=== PATIENT | female | born 1995 | race Caucasian/White ===

== ENCOUNTER 2017-01-30 01:36 | Emergency (ER) | payer BC ==
[2017-01-30 02:24] LABS: Appearance,Urine Turbid (Clear); Bilirubin,Urine Negative (Negative); Glucose,Urine (UA) Negative (Negative); Ketones,Urine Negative (Negative); Leukocyte Esterase,Urine Large (Negative); Mucus,Urine Many /hpf; Nitrite,Urine Negative (Negative); PH, Urine 5.5 (5.0-8.0); Particle Count 39625; Protein,Urine 1+ (Negative); RBC,Urine 3 /hpf (0-5); Specific Gravity,Urine 1.023 (1.001-1.035); Squamous Epithelial Cell,Urine 101 /hpf (0-4); UA Billing (MACRO vs. MICRO) MICRO; Urobilinogen,Urine <2.0 mg/dL (<2.0); WBC,Urine 176 /hpf (0-5)
--- NOTE | 2017-01-30 03:20 | ED ---
Female Urogenital HPI - General Chief complaint: Vaginal Bleeding Stated complaint: -spotting Time Seen by Provider: 01/30/17 01:43 Source: patient, RN notes reviewed Mode of arrival: ambulatory Limitations: no limitations - History of Present Illness Initial comments: Patient is 21-year-old female chief complaint of possibly being . Patient reports that over the past increasing nausea in the morning as well as tenderness to bilateral breasts. Patient reports that she's not had a menstrual cycle since September. Patient states that she has a history of abnormal. Said this is a surprise to her. She states that she is unsure of her lung she could be. She denies any abdominal pain. She states that today she did notice spotting and is concerned. Patient states she has not taken a test. Patient states the severe first . Last Menstrual Period: 10/02/16 - Related Data Previous Rx's Medication Instructions Recorded Cefpodoxime Proxetil [Vantin] 100 mg PO Q12HR #14 tab 01/30/17 Krf-Jghb-Sgrkj Acid 1 cap PO DAILY #30 cap 01/30/17 [-U Capsule (formulary)] Allergies Allergy/AdvReac Type Severity Reaction Status Date / Time codeine Allergy Anaphylaxis Verified 01/30/17 01:44 Penicillins Allergy Rash/Hives Verified 01/30/17 01:44 Review of Systems ROS Statement: Those systems with pertinent positive or pertinent negative responses have been documented in the HPI. ROS Other: All systems not noted in ROS Statement are negative. Past Medical History Additional Past Medical History / Comment(s): endometreosis History of Any Multi-Drug Resistant Organisms: None Reported Past Surgical History: Hernia Repair Past Psychological History: Anxiety, Bipolar Smoking Status: Current every day smoker Past Alcohol Use History: None Reported Past Drug Use History: None Reported General Exam - General Exam Comments Initial Comments: Pleasant 21-year-old female. No distress. Limitations: no limitations General appearance: alert, in no apparent distress Head exam: Present: atraumatic, normocephalic, normal inspection Eye exam: Present: normal appearance, PERRL, EOMI. Absent: scleral icterus, conjunctival injection, periorbital swelling ENT exam: Present: normal exam, mucous membranes moist Neck exam: Present: normal inspection. Absent: tenderness, meningismus, lymphadenopathy Respiratory exam: Present: normal lung sounds bilaterally. Absent: respiratory distress, wheezes, rales, rhonchi, stridor Cardiovascular Exam: Present: regular rate, normal rhythm, normal heart sounds. Absent: systolic murmur, diastolic murmur, rubs, gallop, clicks GI/Abdominal exam: Present: soft, normal bowel sounds. Absent: distended, tenderness, guarding, rebound, rigid External exam: Present: normal external exam Speculum exam: Present: normal speculum exam, vaginal discharge (Skin vaginal discharge.) By manual exam: Present: normal by manual exam Extremities exam: Present: normal inspection, full ROM, normal capillary refill. Absent: tenderness, pedal edema, joint swelling, calf tenderness Back exam: Present: normal inspection Neurological exam: Present: alert, oriented X3, CN II-XII intact Course Vital Signs 01/30/17 01/30/17 01:39 03:33 Temperature 97.4 F L 97 F L Pulse Rate 74 84 Respiratory 20 18 Rate Blood Pressure 120/78 122/64 O2 Sat by Pulse 99 97 Oximetry Medical Decision Making - Medical Decision Making Patient is 21-year-old female the possibility of being . Last menstrual cycle was in September. Patient does test positive on the urine test. Also signs of infection. Patient be treated with Ceftin piroxicam. She is ALLERGIC to penicillins. Patient is also O+. No signs of miscarriage with any vaginal bleeding. There is scant amount of vaginal discharge. Swabs are obtained for chlamydia and gonorrhea. Patient is excited about the . She states that she plans to get an EVENT AV OPERATOR. At this time currently pending hCG Quant results. Patient will be discharged with vitamin, antibiotic, and prescription for transvaginal ultrasound. Patient agrees with the treatment plan will comply. I discussed close follow-up with primary care provider. Return parameters were discussed. - Lab Data Lab Results 01/30/17 01/30/17 01/30/17 Range/Units 01:50 01:50 02:35 Urine Color Yellow Urine Appearance Turbid H (Clear) Urine pH 5.5 (5.0-8.0) Ur Specific [place] 1.023 (1.001-1.035) Urine Protein 1+ H (Negative) Urine Glucose (UA) Negative (Negative) Urine Ketones Negative (Negative) Urine Blood Moderate H (Negative) Urine Nitrite Negative (Negative) Urine Bilirubin Negative (Negative) Urine Urobilinogen <2.0 (<2.0) mg/dL Ur Leukocyte Esterase Large H (Negative) Urine RBC 3 (0-5) /hpf Urine WBC 176 H (0-5) /hpf Ur Squamous Epith Cells 101 H (0-4) /hpf Urine Mucus Many H (None) /hpf Urine HCG, Qual Detected (Not Detectd) Trichomonas Ag (Rapid) Negative (Negative) Blood Type Blood Type Recheck 01/30/17 Range/Units 03:30 Urine Color Urine Appearance (Clear) Urine pH (5.0-8.0) Ur Specific [place] (1.001-1.035) Urine Protein (Negative) Urine Glucose (UA) (Negative) Urine Ketones (Negative) Urine Blood (Negative) Urine Nitrite (Negative) Urine Bilirubin (Negative) Urine Urobilinogen (<2.0) mg/dL Ur Leukocyte Esterase (Negative) Urine RBC (0-5) /hpf Urine WBC (0-5) /hpf Ur Squamous Epith Cells (0-4) /hpf Urine Mucus (None) /hpf Urine HCG, Qual (Not Detectd) Trichomonas Ag (Rapid) (Negative) Blood Type O Positive Blood Type Recheck No Disposition Clinical Impression: , Urinary tract infection Disposition: HOME SELF-CARE Condition: Good Instructions: (ED), Urinary Tract Infection in (ED) Additional Instructions: Patient denies to complete antibiotics. Follow-up with a EVENT AV OPERATOR. Completely ultrasound. Return to emergency department if any alarming signs or symptoms occur. Prescriptions: Cefpodoxime Proxetil [Vantin] 100 mg PO Q12HR #14 tab Ccj-Hjll-Rorwa Acid [-U Capsule (formulary)] 1 cap PO DAILY # 30 cap Referrals: Josie Domínguez MD [Primary Care Provider] - 1-2 days Jovana Bateman MD [STAFF PHYSICIAN] - 1-2 days Time of Disposition: 03:11
[2017-01-30 03:34] VITALS: BP 122/64; PULSE 84; RESP 18; TEMP 97
== END 2017-01-30 03:33 | disposition home or self-care (01) ==
LOC: EC 01:36
DX: O23.40 Unspecified infection of urinary tract in pregnancy, unspecified trimester (principal); O99.89 Other specified diseases and conditions complicating pregnancy, childbirth and the puerperium; O99.330 Smoking (tobacco) complicating pregnancy, unspecified trimester; N89.8 Other specified noninflammatory disorders of vagina; R11.0 Nausea; F17.200 Nicotine dependence, unspecified, uncomplicated; Z3A.00 Weeks of gestation of pregnancy not specified; Z88.0 Allergy status to penicillin; Z88.5 Allergy status to narcotic agent
CPT/HCPCS: 36415; 81001; 81025; 84702; 86900; 86901; 87070; 87086; 87205; 87491; 87591; 87808; 99284

== ENCOUNTER 2017-06-14 09:49 | Outpatient (CLI) | payer BC ==
[2017-06-14] MEDS: LACTATED RINGERS 1,000 ML IV SCH ×2 (10:50→11:26)
[2017-06-14 10:58] LABS: Appearance,Urine Cloudy (Clear); Bacteria,Urine Rare /hpf; Bilirubin,Urine Negative (Negative); Glucose,Urine (UA) Negative (Negative); Ketones,Urine Negative (Negative); Leukocyte Esterase,Urine Large (Negative); Mucus,Urine Occasional /hpf; Nitrite,Urine Negative (Negative); PH, Urine 6.5 (5.0-8.0); Particle Count 13381; Protein,Urine Negative (Negative); RBC,Urine 4 /hpf (0-5); Specific Gravity,Urine 1.012 (1.001-1.035); Squamous Epithelial Cell,Urine 27 /hpf (0-4); UA Billing (MACRO vs. MICRO) MICRO; Urobilinogen,Urine <2.0 mg/dL (<2.0); WBC,Urine 13 /hpf (0-5)
[2017-06-14] MEDS ORDERED: ONDANSETRON 4 MG/2 ML VIAL IVP PRN (11:26)
[2017-06-14 15:37] VITALS: BP 118/71; PULSE 82; RESP 20; TEMP 97.1
--- NOTE | 2017-08-30 11:53 | P.MSEPDOC ---
Presenting Problems - Arrival Data Date of Arrival on Unit: 06/14/17 Time of Arrival on Unit: 09:39 Mode of Transport: Ambulatory - Complaint OB-Reason for Admission/Chief Complaint: Acute Nausea/Vomiting Comment: n/v x 7 since midnight. Medical History - Information : 1 Para: 0 Term: 0 : 0 Abortions: Spontaneous or Elective: 0 Number of Living Children: 0 - Gestational Age Gestational Age by KASANDRA (wks/days): 26 Weeks and 3 Days Review of Systems - Review of Systems Constitutional: No problems Breast: No problems ENT: No problems Cardiovascular: No problems Respiratory: No problems Genitourinary: No problems Musculoskeletal: No problems Neurological: No problems Skin: No problems Comment: n/v since mn Vital Signs - Temperature Temperature: 97.1 F Temperature Source: Oral - Pulse Right Brachial Pulse Rate: 82 Pulse Assessment Method: Automatic Cuff - Respirations Respiratory Rate: 20 Oxygen Delivery Method: Room Air O2 Sat by Pulse Oximetry: 98 - Blood Pressure Right Arm Blood Pressure: 118/71 Blood Pressure Mean: 86 Blood Pressure Source: Automatic Cuff Medical Screen Scoring (Pre) - Cervical Exam Dilation: Exam Deferred Effacement: Exam Deferred Membranes: Intact - Uterine Contractions Frequency: N/A Duration: N/A Intensity: N/A - Maternal Vital Signs Maternal Temperature: N/A Maternal Blood Pressure: N/A Signs of Preeclampsia: N/A Maternal Respirations: N/A - Assessment Baseline FHR: 130 Heart Rate - NICHD Category: Category I (Normal) = 0 Position: N/A Station: N/A - Total Score Total Score (Pre): 0 - Level of Risk Level of Risk: Low (0-5) Physician Notification (Pre) - Physician Notified Spoke With: samra New Order Received: Yes - Notification Comment Comment: ok to discharge patient if no nausea or vomitting and pt is stable for discharge. Medical Screen Scoring (Post) - Cervical Exam Dilation: Exam Deferred Effacement: Exam Deferred - Uterine Contractions Frequency: N/A Duration: N/A Intensity: N/A - Maternal Vital Signs Maternal Temperature: N/A Maternal Blood Pressure: N/A Signs of Preeclampsia: N/A Maternal Respirations: N/A - Maternal Trauma Maternal Trauma: N/A - Assessment Heart Rate: 130 Heart Rate - NICHD Category: Category I (Normal) = 0 NST: Reactive Position: N/A Station: N/A - Total Score Total Score (Post): 0 - Post Treatment Level of Risk Post Treatment Level of Risk: Low (0-5) Physician Notification (Post) - Physician Notified Physician Notified Date: 06/14/17 Physician Notified Time: 10:40 Physician/Practitioner Notified:: samra Spoke With: samra New Order Received: No - Notification Comment Comment: disch home. Disposition - Disposition OB Disposition: Discharge to home Discharge Date: 06/14/17 Discharge Time: 13:40 I agree with the RN Medical Screening Exam: Yes Risk & Benefit of care provided described in d/c instruction: Yes Diagnosis: VOMITING OF , UNSPECIFIED
== END 2017-06-14 13:40 | disposition home or self-care (01) ==
LOC: FBPOP 09:49
PROVIDERS: ATTEND Obstetrics & Gynecology Obstetrics
DX: O21.9 Vomiting of pregnancy, unspecified (principal); Z3A.26 26 weeks gestation of pregnancy
CPT/HCPCS: 99214; 96360; 96361; 96375; 81001; J2405

== ENCOUNTER 2017-09-01 16:21 | Outpatient (CLI) | payer BC ==
[2017-09-01] MEDS ORDERED: LACTATED RINGERS 1,000 ML IV SCH (17:30)
[2017-09-01 19:20] VITALS: BP 129/74; PULSE 88; RESP 16; TEMP 98.6
--- NOTE | 2017-09-22 12:57 | P.MSEPDOC ---
Presenting Problems - Arrival Data Date of Arrival on Unit: 09/01/17 Time of Arrival on Unit: 16:21 Mode of Transport: Ambulatory - Complaint OB-Reason for Admission/Chief Complaint: Possible Onset of Labor Medical History - Information : 1 Para: 0 Term: 0 : 0 Abortions: Spontaneous or Elective: 0 Number of Living Children: 0 - Gestational Age Gestational Age by KASANDRA (wks/days): 37 Weeks and 5 Days Review of Systems - Review of Systems Constitutional: No problems Breast: No problems ENT: No problems Cardiovascular: No problems Respiratory: No problems Gastrointestinal: No problems Genitourinary: No problems Musculoskeletal: No problems Neurological: No problems Skin: No problems Vital Signs - Temperature Temperature: 98.6 F Temperature Source: Temporal Artery Scan - Pulse Right Sitting Pulse Rate: 88 Pulse Assessment Method: Automatic Cuff - Respirations Respiratory Rate: 16 Oxygen Delivery Method: Room Air - Blood Pressure Right Arm Blood Pressure: 129/74 Blood Pressure Mean: 92 Blood Pressure Source: Automatic Cuff Medical Screen Scoring (Pre) - Cervical Exam Dilation: 1-3 cm = 1 Effacement: More than 50% = 2 Membranes: Intact - Uterine Contractions Frequency: > or = 36 weeks =2 Duration: N/A - Maternal Vital Signs Maternal Temperature: N/A Maternal Blood Pressure: N/A Signs of Preeclampsia: N/A Maternal Respirations: N/A - Maternal Trauma Maternal Trauma: N/A - Assessment Baseline FHR: 150 Heart Rate - NICHD Category: Category I (Normal) = 0 NST: Reactive Position: N/A Station: N/A - Total Score Total Score (Pre): 5 - Level of Risk Level of Risk: Medium (6-9) Physician Notification (Pre) - Physician Notified Physician Notified Date: 09/01/17 Physician Notified Time: 16:41 Physician/Practitioner Notifed:: Hurtubise New Order Received: Yes (recheck cervix in 1 hour, IV hydration) Medical Screen Scoring (Post) - Cervical Exam Dilation: 1-3 cm = 1 Effacement: More than 50% = 2 Membranes: Intact - Uterine Contractions Frequency: > or = 36 weeks =2 Duration: > 40 seconds = 2 - Maternal Vital Signs Maternal Temperature: N/A Maternal Blood Pressure: N/A Signs of Preeclampsia: N/A Maternal Respirations: N/A - Maternal Trauma Maternal Trauma: N/A - Assessment Heart Rate: 145 Heart Rate - NICHD Category: Category I (Normal) = 0 NST: Reactive Position: N/A Station: N/A - Total Score Total Score (Post): 7 - Post Treatment Level of Risk Post Treatment Level of Risk: Medium (6-9) Physician Notification (Post) - Physician Notified Physician Notified Date: 09/01/17 Physician Notified Time: 18:58 Physician/Practitioner Notified:: Fransico New Order Received: Yes (D/c home) - Notification Comment Comment: Pt has F/U appt with Dr. Mcmahon 09/04 Disposition - Disposition OB Disposition: Discharge to home Discharge Date: 09/01/17 Discharge Time: 19:01 I agree with the RN Medical Screening Exam: Yes Risk & Benefit of care provided described in d/c instruction: No Diagnosis: FALSE LABOR BEFORE 37 COMPLETED WEEKS OF GEST, THIRD TRI
== END 2017-09-01 19:01 | disposition home or self-care (01) ==
LOC: FBPOP 16:21
PROVIDERS: ATTEND Obstetrics & Gynecology
DX: O47.03 False labor before 37 completed weeks of gestation, third trimester (principal); Z3A.37 37 weeks gestation of pregnancy
CPT/HCPCS: 59025; 96360; 96361; 99214

== ENCOUNTER 2017-09-09 08:21 | Inpatient (IN) | payer BC, OTHER ==
[2017-09-09] MEDS ORDERED: ONDANSETRON 4 MG/2 ML VIAL ONE (08:46)
[2017-09-09] MEDS ORDERED: PHENYLEPHRINE-0.9% NACL SYG 1 MG/10 ML SYRINGE ONE (08:46)
[2017-09-09] MEDS ORDERED: OXYTOCIN 10 UNIT/ML 1 ML VIAL ONE (08:46)
[2017-09-09] MEDS ORDERED: PROPOFOL 10 MG/ML 20 ML VIAL IV ONE (08:46)
[2017-09-09] MEDS ORDERED: SUCCINYLCHOLINE CHLORIDE 100 MG/5 ML SYR IV ONE (08:46)
[2017-09-09] MEDS ORDERED: METHYLERGONOVINE 0.2 MG/ML 1 ML AMP ONE (08:46)
[2017-09-09] MEDS ORDERED: fentaNYL (PF) 50 MCG/ML 2 ML AMP ONE (08:46)
[2017-09-09] MEDS ORDERED: HYDROmorphone (PF) 1 MG/ML ONE (08:46)
[2017-09-09] MEDS ORDERED: diphenhydrAMINE 50 MG/ML 1 ML VIAL IVP PRN ×2 (09:20)
[2017-09-09] MEDS ORDERED: ZOLPIDEM 5 MG TAB PO PRN (09:20)
[2017-09-09] MEDS ORDERED: CITRIC ACID-SODIUM CITRATE 15 ML CUP PO ONE (09:20)
[2017-09-09] MEDS ORDERED: NALOXONE 0.4 MG/ML 1 ML VIAL IV PRN (09:20)
[2017-09-09] MEDS ORDERED: ACETAMINOPHEN TAB 325 MG TAB PO PRN (09:20)
[2017-09-09] MEDS ORDERED: METOCLOPRAMIDE 5 MG/ML 2 ML VIAL IVP PRN (09:20)
[2017-09-09] MEDS ORDERED: ONDANSETRON 4 MG/2 ML VIAL IVP PRN (09:20)
[2017-09-09] MEDS ORDERED: diphenhydrAMINE 25 MG CAP PO PRN (09:20)
[2017-09-09] MEDS ORDERED: HYDROmorphone PCA 5 MG/25 ML SYRINGE IV PRN (09:20)
[2017-09-09] MEDS ORDERED: diphenhydrAMINE 50 MG CAP PO PRN (09:20)
[2017-09-09] MEDS ORDERED: LACTATED RINGERS 1,000 ML IV SCH (09:30)
[2017-09-09 09:49] LABS: Basophils % (A) 0 %; CH 29.2; CHCM 31.8; Eosinophils % (A) 0 %; HCT 33.6 % (34.0-46.0); HDW 2.83; HGB 10.7 gm/dL (11.4-16.0); Hypochromasia Slight; Luc # (Auto) 0.18; Luc % (Auto) 1; Lymphocytes # (A) 1.4 k/uL (1.0-4.8); Lymphocytes % (A) 8 %; MCH 29.3 pg (25.0-35.0); MCHC 31.7 g/dL (31.0-37.0); MCV 92.4 fL (80.0-100.0); Monocytes % (A) 5 %; Neutrophils # (A) 14.9 k/uL (1.3-7.7); Neutrophils % (A) 85 %; RBC 3.64 m/uL (3.80-5.40); RDW 14.1 % (11.5-15.5); WBC 17.6 k/uL (4.0-11.0); WBC (Perox) 18.71
[2017-09-09] MEDS: LACTATED RINGERS 1,000 ML IV SCH ×2 (10:04→19:16)
[2017-09-09] MEDS ORDERED: OXYTOCIN 20 UNITS/1000 ML NS 1,000 ML IV SCH (10:15)
[2017-09-09 13:07] VITALS: BMI 24.4
[2017-09-09] MEDS: ACETAMINOPHEN IV (For NPO) 1,000 MG in EMPTY BAG 1 BAG IVPB SCH ×2 (13:18→21:20)
--- NOTE | 2017-09-09 15:20 | P.HPOB ---
History of Present Illness H&P Date: 09/09/17 Chief Complaint: Contractions, IUP at 38-6/7 weeks Since a very pleasant 21-year-old 1 para 0 at 38-6/7 weeks that presented to labor and delivery with complaints of contractions. On initial exam patient was 3 cm dilated but noted tachycardia with decelerations down to the 60s. Patient stated she was uncomfortable with contractions. She denied any loss of fluid at this time. She denied any vaginal bleeding. She states she started rody in the middle of the evening but they really got strongly around 1:00 this morning. She did movement throughout all of the evening. The decision was made to take the patient back for a primary low transverse section secondary to nonreassuring heart tones informed consent was obtained at the bedside from the patient. Risks were reviewed including but not limited to infection, bleeding, damage to bladder, bowel, ureteric injury. She states understanding and will sign consent. On blood work she had a blood type of O+, rubella immune, RPR nonreactive, hepatitis B surface antigen negative, HIV negative group B beta strep positive. Past Medical History Additional Past Medical History / Comment(s): endometreosis History of Any Multi-Drug Resistant Organisms: None Reported Past Surgical History: Hernia Repair Past Anesthesia/Blood Transfusion Reactions: No Reported Reaction Past Psychological History: Anxiety, Bipolar Smoking Status: Never smoker Past Alcohol Use History: None Reported Past Drug Use History: Marijuana Additional Drug Use History / Comment(s): pt states discontinued use but family she lives with still smokes - Past Family History Mother Family Medical History: Blood Disorder Medications and Allergies Home Medications Medication Instructions Recorded Confirmed Type Dpm-Zodo-Mvjcy Acid 1 cap PO DAILY #30 cap 01/30/17 09/09/17 Rx [-U Capsule (formulary)] Allergies Allergy/AdvReac Type Severity Reaction Status Date / Time codeine Allergy Anaphylaxis Verified 09/09/17 09:20 Penicillins Allergy Rash/Hives Verified 09/09/17 09:20 Exam Osteopathic Statement: *. No significant issues noted on an osteopathic structural exam other than those noted in the History and Physical/Consult. - Vital Signs Vital signs: Vital Signs Temp Pulse Resp BP Pulse Ox 09/09/17 12:48 98.9 F 107 H 18 142/81 99 09/09/17 11:31 95 16 139/82 100 11/07/17 11:01 92 16 135/82 100 09/09/17 10:31 85 16 131/80 100 09/09/17 10:16 77 16 140/82 100 09/09/17 10:01 85 16 145/78 100 09/09/17 09:46 86 16 139/84 100 09/09/17 09:31 98.9 F 108 H 16 146/81 100 09/09/17 09:10 97.9 F 102 H 18 138/88 100 Intake and Output 09/09/17 09/09/17 09/09/17 06:59 14:59 22:59 Output Total 800 Balance -800 Output: Estimated Blood Loss 800 Other: Weight 62.596 kg Patient Weight 09/10/17 06:59 Weight 62.596 kg Results Result Diagrams: 09/09/17 08:40 Abnormal Lab Results - Last 24 Hours (Table) 09/09/17 Range/Units 08:40 WBC 17.6 H (4.0-11.0) k/uL RBC 3.64 L (3.80-5.40) m/uL Hgb 10.7 L (11.4-16.0) gm/dL Hct 33.6 L (34.0-46.0) % Neutrophils # 14.9 H (1.3-7.7) k/uL Assessment and Plan (1) Term Current Visit: Yes Status: Acute Code(s): Z34.80 - ENCOUNTER FOR SUPRVSN OF NORMAL , UNSP TRIMESTER SNOMED Code(s): 47609678 (2) Non-reassuring electronic monitoring tracing Narrative/Plan: Plan was for primary low transverse section with general anesthesia secondary to nonreassuring heart tracing. Current Visit: Yes Status: Acute Code(s): O76 - ABNLT IN HEART RATE AND RHYTHM COMP LABOR AND DELIVERY SNOMED Code(s): 466151156
--- NOTE | 2017-09-09 15:24 | P.OP ---
Date of Procedure: 09/09/17 Preoperative Diagnosis: Nonreassuring heart tones, IUP at 38 6/7 weeks Postoperative Diagnosis: Same Procedure(s) Performed: Primary low transverse section Anesthesia: HARSHIL Surgeon: Kalpana Mcmahon Green Coffee Blender #1: Monica Pinto Estimated Blood Loss (ml): 800 IV fluids (ml): 1,000 Urine output (ml): 100 Pathology: other (Placenta) Condition: stable Disposition: observation Indications for Procedure: Nonreassuring heart tones Operative Findings: Thick meconium-stained amniotic fluid. Female delivered in vertex presentation at 851 Apgars of 389 at 15 and 10 minutes respectively. weight of 7 lbs. 10 oz. Description of Procedure: The patient was prepped and draped in the usual fashion after spinal anesthesia was administered by Dr. Johns. A Pfannenstiel incision was made and extended of the abdominal cavity without difficulty. The bladder peritoneum was elevated and incised and reflected distally. A 2 cm incision was made in the transverse plane of the lower uterine segment to enter the uterus at which time clear fluid was noted. The incision was extended in both directions using the bandage scissors. The head was encountered within the field and delivered up and through the incision where the nose and mouth were thoroughly suctioned. Remainder of the infant was delivered onto the surgical field where the cord was doubly clamped, cut, and the was passed for resuscitative measures with weight and Apgars 3, 8,9 1,5 10 mins. A segment of cord was then doubly clamped, cut, and set aside should cord gases become necessary. The placenta was delivered manually, intact, and was grossly normal with a grossly normal three-vessel cord. The uterus was exteriorized and the interior cavity of the uterus swept of any remaining placental and membranous fragments with a laparotomy sponge. The margins of the incision were grasped with allis clamps and the incision closed in 2 layers. First layer was a running locking layer of 0 vicryl from margin to margin followed by a second layer of imbricating 0 vicryl from margin to margin. Any small points of bleeding were then made hemostatic with the Bovie. Once hemostasis was achieved, the posterior cul-de- sac was suctioned with a guard and the uterine and ovarian findings are as noted above. The uterus was replaced within the abdominal cavity and the gutters swept of any remaining blood fluid or clot. The incision was again reexamined and hemostasis was noted to be excellent. Any small point of bleeding were made hemostatic with the Bovie. Once hemostasis was achieved the parietal peritoneum was loosely reapproximated. The layer of muscles were examined and made hemostatic with the Bovie. Attention was then turned to the fascia which was closed with 2 running stitches of 0 Vicryl proceeding from the lateral margins to the midpoint. The subcutaneous tissues were irrigated, made hemostatic with the Bovie, and reapproximated with a running stitch of 30 plain catgut. The skin was reapproximated with regular surgical joseph. Estimated blood loss for the case was approximately 600 mL. All sponge instrument and needle counts are correct. There were no complications. The patient tolerated the procedure well and proceeded to the recovery room in stable condition. Both mother and infant are resting comfortably in recovery.
[2017-09-09] MEDS: SENNOSIDES-DOCUSATE SODIUM 1 EACH TAB PO SCH (22:13)
[2017-09-10] MEDS: ACETAMINOPHEN IV (For NPO) 1,000 MG in EMPTY BAG 1 BAG IVPB SCH ×2 (03:45→09:52)
[2017-09-10] MEDS: LACTATED RINGERS 1,000 ML IV SCH (07:41)
[2017-09-10] MEDS: IBUPROFEN 600 MG TAB PO PRN ×2 (07:42→16:20)
[2017-09-10] MEDS: SENNOSIDES-DOCUSATE SODIUM 1 EACH TAB PO SCH ×2 (07:42→20:57)
[2017-09-10] MEDS ORDERED: traMADol-ACETAMINOP 37.5-325MG 1 EACH TAB PO PRN (08:40)
--- NOTE | 2017-09-10 08:40 | P.PNOBGPC ---
Subjective - Subjective Principal diagnosis: Postop day 1, primary Interval history: Twila has done well status post primary for nonreassuring heart tones. She is ambulating. She has voided on her own status post Muir catheter discontinuation. She states her pain is controlled. We are struggling a little bit to find what we can use for her given her severe codeine ALLERGY. We will try Ultram this morning. In addition we will give her IV Ofirmev if needed. Patient reports: Reports appetite normal, Reports voiding normally, Reports pain well controlled, Reports ambulating normally [place]: doing well (In the nursery.) Objective - Vital Signs Latest vital signs: Vital Signs Temp Pulse Resp BP Pulse Ox 09/10/17 04:00 98.8 F 86 16 108/59 98 09/10/17 00:00 98.4 F 75 18 120/68 100 09/09/17 20:00 98.1 F 80 18 116/70 100 09/09/17 16:00 98 F 92 16 122/67 97 09/09/17 13:48 94 16 121/68 97 09/09/17 13:33 113 H 16 133/75 96 09/09/17 13:18 114 H 16 136/83 97 09/09/17 13:03 114 H 16 151/92 100 09/09/17 12:48 98.9 F 107 H 18 142/81 99 09/09/17 11:31 95 16 139/82 100 09/09/17 11:01 92 16 135/82 100 09/09/17 10:31 85 16 131/80 100 09/09/17 10:16 77 16 140/82 100 09/09/17 10:01 85 16 145/78 100 09/09/17 09:46 86 16 139/84 100 09/09/17 09:31 98.9 F 108 H 16 146/81 100 09/09/17 09:10 97.9 F 102 H 18 138/88 100 Intake and Output 09/09/17 09/10/17 09/10/17 22:59 06:59 14:59 Intake Total 125 Output Total 2400 Balance -2275 Intake: IV 125 Invasive Line 1 125 Output: Urine 2400 Other: # Voids 1 - Labs Labs: Abnormal Lab Results - Last 24 Hours (Table) 11/07/17 Range/Units 08:40 WBC 17.6 H (4.0-11.0) k/uL RBC 3.64 L (3.80-5.40) m/uL Hgb 10.7 L (11.4-16.0) gm/dL Hct 33.6 L (34.0-46.0) % Neutrophils # 14.9 H (1.3-7.7) k/uL Assessment and Plan (1) Term Current Visit: Yes Status: Acute Code(s): Z34.80 - ENCOUNTER FOR SUPRVSN OF NORMAL , UNSP TRIMESTER SNOMED Code(s): 05040662 (2) Non-reassuring electronic monitoring tracing Current Visit: Yes Status: Acute Code(s): O76 - ABNLT IN HEART RATE AND RHYTHM COMP LABOR AND DELIVERY SNOMED Code(s): 804697045
[2017-09-10 09:24] LABS: Basophils % (A) 0 %; CH 29.8; CHCM 31.5; Eosinophils % (A) 0 %; HCT 28.8 % (34.0-46.0); HDW 2.87; Hypochromasia Slight; Luc # (Auto) 0.16; Luc % (Auto) 1; Lymphocytes # (A) 0.7 k/uL (1.0-4.8); Lymphocytes % (A) 3 %; MCH 28.7 pg (25.0-35.0); MCHC 30.1 g/dL (31.0-37.0); MCV 95.4 fL (80.0-100.0); Mean Platelet Volume 7.2; Monocytes # (A) 0.7 k/uL (0-1.0); Monocytes % (A) 3 %; Neutrophils # (A) 25.4 k/uL (1.3-7.7); Neutrophils % (A) 94 %; RBC 3.02 m/uL (3.80-5.40); RDW 13.3 % (11.5-15.5); WBC (Perox) 27.66
[2017-09-10 09:44] LABS: HGB 8.7 gm/dL (11.4-16.0)
[2017-09-10] MEDS: traMADol-ACETAMINOP 37.5-325MG 1 EACH TAB PO PRN ×2 (11:56→20:56)
[2017-09-10] MEDS: PRENATAL VIT-IRON-FOLIC ACID 1 EACH CAP PO SCH (13:07)
[2017-09-11 07:27] LABS: Basophils % (A) 0 %; CH 28.6; Eosinophils % (A) 0 %; HCT 27.2 % (34.0-46.0); HDW 2.77; HGB 8.5 gm/dL (11.4-16.0); Hypochromasia Moderate; Luc # (Auto) 0.16; Luc % (Auto) 1; Lymphocytes # (A) 0.9 k/uL (1.0-4.8); Lymphocytes % (A) 4 %; MCHC 31.2 g/dL (31.0-37.0); Mean Platelet Volume 7.9; Monocytes # (A) 0.4 k/uL (0-1.0); Monocytes % (A) 2 %; Neutrophils # (A) 23.2 k/uL (1.3-7.7); Neutrophils % (A) 94 %; RBC 2.92 m/uL (3.80-5.40); RDW 14.1 % (11.5-15.5); WBC 24.7 k/uL (4.0-11.0); WBC (Perox) 26.33
[2017-09-11] MEDS ORDERED: MAGNESIUM HYDROXIDE 2,400 MG/10 ML CUP PO PRN (08:13)
--- NOTE | 2017-09-11 08:13 | P.PNOBGPC ---
Subjective - Subjective Principal diagnosis: Postop day 2, primary Interval history: Patient is doing well this morning. She slept well overnight. Baby remains in the nursery with oxygen. She is using Ultram for pain control due to her many ALLERGIES. She states it is working but she has painful this morning. She is ambulating and voiding without difficulty. She has not passed flatus. She is tolerating a regular diet without nausea or vomiting. Patient reports: Reports appetite normal, Reports voiding normally (Pain controlled yet if she forgets her medication her pain scale increases), Reports ambulating normally (In the nursery with oxygen needs) Objective - Vital Signs Latest vital signs: Vital Signs Temp Pulse Resp BP Pulse Ox 09/10/17 23:26 98.4 F 90 16 97/41 09/10/17 16:00 98.6 F 89 16 109/59 98 - Exam Extremities: Present: normal Abdomen: Present: soft, distention Incision: Present: normal, dry, intact Uterus: Present: firm - Labs Labs: Abnormal Lab Results - Last 24 Hours (Table) 09/10/17 09/11/17 Range/Units 08:50 07:06 WBC 27.0 H* 24.7 H (4.0-11.0) k/uL RBC 3.02 L 2.92 L (3.80-5.40) m/uL Hgb 8.7 L D 8.5 L (11.4-16.0) gm/dL Hct 28.8 L 27.2 L (34.0-46.0) % MCHC 30.1 L (31.0-37.0) g/dL Neutrophils # 25.4 H 23.2 H (1.3-7.7) k/uL Lymphocytes # 0.7 L 0.9 L (1.0-4.8) k/uL Assessment and Plan (1) Term Narrative/Plan: Continue postoperative care. She will need simethicone or milk of magnesia given without gassy distention of her abdomen. She states she has not passed flatus yet. Her pain is mostly controlled with oral Ultram. We did discuss pain control this morning and given her multiple ALLERGIES this is the only option for her. I encouraged her to continue to walk the halls, warm showers for flatus. Current Visit: Yes Status: Acute Code(s): Z34.80 - ENCOUNTER FOR SUPRVSN OF NORMAL , UNSP TRIMESTER SNOMED Code(s): 67829560 (2) Non-reassuring electronic monitoring tracing Current Visit: Yes Status: Acute Code(s): O76 - ABNLT IN HEART RATE AND RHYTHM COMP LABOR AND DELIVERY SNOMED Code(s): 291492014
[2017-09-11] MEDS: SIMETHICONE 80 MG CHEWABLE PO SCH ×3 (09:03→23:51)
[2017-09-11] MEDS: PRENATAL VIT-IRON-FOLIC ACID 1 EACH CAP PO SCH (09:03)
[2017-09-11] MEDS: SENNOSIDES-DOCUSATE SODIUM 1 EACH TAB PO SCH ×2 (09:07→19:36)
[2017-09-11] MEDS: IBUPROFEN 600 MG TAB PO PRN ×2 (10:44→19:35)
[2017-09-11] MEDS: traMADol-ACETAMINOP 37.5-325MG 1 EACH TAB PO PRN (16:35)
[2017-09-11] MEDS ORDERED: BISACODYL 10 MG SUPP RECTAL PRN (20:24)
[2017-09-11] MEDS ORDERED: ONDANSETRON 4 MG/2 ML VIAL IVP PRN (22:58)
[2017-09-11] MEDS: ACETAMINOPHEN IV (For NPO) 1,000 MG in EMPTY BAG 1 BAG IVPB PRN (23:30)
[2017-09-11] MEDS: LACTATED RINGERS 1,000 ML IV SCH (23:30)
[2017-09-12] MEDS ORDERED: ACETAMINOPHEN IV (For NPO) 1,000 MG in EMPTY BAG 1 BAG IVPB SCH
[2017-09-12 00:24] VITALS: RESP 16
[2017-09-12] MEDS: KETOROLAC 30 MG/ML 1 ML VIAL IVP PRN (03:36)
[2017-09-12] MEDS: LACTATED RINGERS 1,000 ML IV SCH ×3 (06:20→22:26)
[2017-09-12 07:27] LABS: Basophils % (A) 0 %; CH 29.4; Eosinophils # (A) 0.1 k/uL (0-0.7); Eosinophils % (A) 0 %; HCT 27.1 % (34.0-46.0); HDW 2.93; HGB 8.2 gm/dL (11.4-16.0); Hypochromasia Moderate; Luc # (Auto) 0.11; Luc % (Auto) 1; Lymphocytes # (A) 0.7 k/uL (1.0-4.8); Lymphocytes % (A) 5 %; MCH 28.8 pg (25.0-35.0); MCHC 30.2 g/dL (31.0-37.0); MCV 95.4 fL (80.0-100.0); Mean Platelet Volume 6.9; Monocytes # (A) 0.4 k/uL (0-1.0); Monocytes % (A) 3 %; Neutrophils # (A) 12.9 k/uL (1.3-7.7); Neutrophils % (A) 91 %; RBC 2.84 m/uL (3.80-5.40); RDW 13.1 % (11.5-15.5); WBC 14.1 k/uL (4.0-11.0); WBC (Perox) 14.88
--- NOTE | 2017-09-12 08:03 | XR ---
EXAMINATION TYPE: XR abdomen 1V DATE OF EXAM: 09/12/2017 COMPARISON: NONE INDICATION: Possible ileus TECHNIQUE: Single view abdomen frontal projection FINDINGS: There appears to be some prominent colonic type bowel gas present. Some nonspecific areas in the left flank appears to be subcutaneous which may be related to the patient's recent surgery. Likewise, josué e nonspecific air is within the lower pelvis likely related to the patient's surgery. Consider focal acute abdominal series with supine and upright left lateral decubitus views for better delineation of the air. Obvious obstruction is not identified. Psoas margins are normal. No organomegaly is present. No suspicious calcifications are evident. IMPRESSION: 1. There may be a colonic ileus present. 2. There is additional air which is nonspecific likely related to the patient's surgery. Consider add itional abdominal imaging to better delineate the air.
--- NOTE | 2017-09-12 08:16 | P.PNOBGPC ---
Subjective - Subjective Principal diagnosis: Postop day 3, primary section, ileus Interval history: This patient was noted to have some abdominal distention on postop day 2 from primary secondary to nonreassuring heart tones. She states she did ambulate yesterday but was tolerating some oral intake but noted vomiting last night. She is currently nothing by mouth with an IV running her abdomen appears distended similarly to yesterday. A flatplate of the abdomen was obtained showing chronic ileus. We will try dulcolax suppository increase ambulation and assessment the patient is doing if no relief will consider NG tube Patient reports: Reports pain well controlled, Reports ambulating normally, Reports nauseated [place]: doing well (In the nursery) Objective - Vital Signs Latest vital signs: Vital Signs Temp Pulse Resp BP Pulse Ox 09/12/17 00:00 98.3 F 82 16 104/63 09/11/17 16:00 98.2 F 110 H 18 126/77 98 Intake and Output 09/11/17 09/12/17 09/12/17 22:59 06:59 14:59 Intake Total 1999 Balance 1999 Intake: Intake, IV Titration 1999 Amount ACETAMINOPHEN IV (For NPO 1000 ) 1,000 mg In Empty Bag 1 bag @ 400 mls/hr IVPB Q6HR PRN Rx#:[id number] Lactated Ringers 1,000 ml 1000 @ 125 mls/hr IV .Q8H [place] Rx#:[id number] Other: # Emeses 1 - Exam Lungs: bilateral: normal Extremities: Present: normal Abdomen: Present: soft, distention Incision: Present: normal, dry, intact Uterus: Present: firm - Labs Labs: Abnormal Lab Results - Last 24 Hours (Table) 09/12/17 Range/Units 06:17 WBC 14.1 H (4.0-11.0) k/uL RBC 2.84 L (3.80-5.40) m/uL Hgb 8.2 L (11.4-16.0) gm/dL Hct 27.1 L (34.0-46.0) % MCHC 30.2 L (31.0-37.0) g/dL Neutrophils # 12.9 H (1.3-7.7) k/uL Lymphocytes # 0.7 L (1.0-4.8) k/uL Assessment and Plan (1) Term Narrative/Plan: Will assess later this afternoon, if necessary we will have NG tube placement on secondary to ileus. Did discuss with this patient nothing to eat today will continue IV fluids and tried dulcolax suppository. Current Visit: Yes Status: Acute Code(s): Z34.80 - ENCOUNTER FOR SUPRVSN OF NORMAL , UNSP TRIMESTER SNOMED Code(s): 16440901 (2) Non-reassuring electronic monitoring tracing Current Visit: Yes Status: Acute Code(s): O76 - ABNLT IN HEART RATE AND RHYTHM COMP LABOR AND DELIVERY SNOMED Code(s): 442988998
[2017-09-12] MEDS: SENNOSIDES-DOCUSATE SODIUM 1 EACH TAB PO SCH ×2 (14:02→22:26)
[2017-09-12] MEDS: PRENATAL VIT-IRON-FOLIC ACID 1 EACH CAP PO SCH (14:03)
[2017-09-12] MEDS: SIMETHICONE 80 MG CHEWABLE PO SCH ×4 (14:03→22:41)
[2017-09-12] MEDS: ACETAMINOPHEN IV (For NPO) 1,000 MG in EMPTY BAG 1 BAG IVPB PRN (15:25)
[2017-09-13] MEDS: PRENATAL VIT-IRON-FOLIC ACID 1 EACH CAP PO SCH (10:07)
[2017-09-13] MEDS: SIMETHICONE 80 MG CHEWABLE PO SCH ×4 (10:07→22:32)
[2017-09-13] MEDS: SENNOSIDES-DOCUSATE SODIUM 1 EACH TAB PO SCH ×2 (10:07→22:22)
[2017-09-13] MEDS: IBUPROFEN 600 MG TAB PO PRN (10:31)
--- NOTE | 2017-09-13 10:40 | P.PNOBGPC ---
Subjective - Subjective Interval history: postop day 4. She reports feeling very hungry. She is having some loose bowel movements but minimal flatus. No nausea or vomiting over the last 24 hours. Complaining of some lower abdominal cramping. Minimal vaginal bleeding. She has tolerated some clear liquids through the night. Patient reports: Reports voiding normally, Reports pain well controlled, Reports ambulating normally, Denies nauseated : doing well (special care nursery) Objective - Vital Signs Latest vital signs: Vital Signs Temp Pulse Resp BP BP Pulse Ox 09/13/17 07:33 98.4 F 88 16 121/72 09/13/17 00:00 98.4 F 87 16 120/69 100 09/12/17 16:00 96.9 F L 93 16 123/85 100 Intake and Output 09/12/17 09/13/17 09/13/17 22:59 06:59 14:59 Other: # Voids 1 # Bowel Movements 1 - Exam Extremities: Present: normal Abdomen: Present: soft, distention (moderately distended but soft), tenderness. Absent: rigidity Incision: Present: normal, dry, intact. Absent: erythematous Uterus: Present: normal, firm. Absent: tenderness Assessment and Plan (1) Postoperative ileus Narrative/Plan: normal bowel sounds and having loose bowel movements. She is tolerated clear liquids however her abdomen remains moderately distended. We will continue clear liquids throughout the day and consider advancing to a regular diet this evening or tomorrow morning. Current Visit: Yes Status: Acute Code(s): K91.89 - OTH POSTPROCEDURAL COMPLICATIONS AND DISORDERS OF DGSTV SYS; K56.7 - ILEUS, UNSPECIFIED SNOMED Code(s): 616590391 (2) S/P section Current Visit: Yes Status: Acute Code(s): Z98.891 - HISTORY OF UTERINE SCAR FROM PREVIOUS SURGERY SNOMED Code(s): 311401090 (3) Anemia Narrative/Plan: postoperative anemia. Hemodynamically stable. Current Visit: Yes Status: Acute Code(s): D64.9 - ANEMIA, UNSPECIFIED SNOMED Code(s): 878128727
[2017-09-13] MEDS: KETOROLAC 30 MG/ML 1 ML VIAL IVP PRN (17:12)
[2017-09-14] MEDS: KETOROLAC 30 MG/ML 1 ML VIAL IVP PRN (00:44)
[2017-09-14] MEDS: LACTATED RINGERS 1,000 ML IV SCH ×2 (04:53→04:54)
[2017-09-14 07:58] VITALS: BP 107/71; PULSE 77; TEMP 98.4
--- NOTE | 2017-09-14 10:21 | P.DS ---
Providers Date of admission: 09/09/17 08:39 Expected date of discharge: 09/14/17 Attending physician: Kalpana Mcmahon Primary care physician: Stated None - Discharge Diagnosis(es) (1) Postoperative ileus Current Visit: Yes Status: Acute (2) S/P section Current Visit: Yes Status: Acute (3) Anemia Current Visit: Yes Status: Acute (4) Non-reassuring electronic monitoring tracing Current Visit: Yes Status: Acute (5) Term Current Visit: Yes Status: Acute Hospital Course: This is a 21-year-old little 1 now para 1 woman who presented at 38-6/7 weeks gestation in active labor. On initial presentation she had nonreassuring heart tones with tachycardia and deep variable heart rate decelerations. She was taken for urgent primary low transverse section. Findings at the time of surgery were remarkable for meconium stained amniotic fluid. Female infant had Apgars of 3 at 1 minute, 8 at 5 minutes and 9 at 10 minutes. Weight was 7 lbs. 10 oz. The patient's postoperative course was remarkable for development of some abdominal distention and vomiting on postoperative day number area she was made nothing by mouth and abdominal films confirmed mild colonic ileus. By postoperative day #3 she was having loose bowel movements after Dulcolax suppository and was feeling very hungry. Her diet was advanced to clears. By the evening of postoperative day #4 she was started on a regular diet. By the morning of postoperative day #5 her abdominal distention was significantly decreased. She was regularly passing gas and tolerating a general diet without nausea or vomiting. Her incision appeared well healing and she had minimal vaginal bleeding. She was therefore discharged home with routine instructions for postoperative care and follow-up. Procedures: Primary low transverse section Patient Condition at Discharge: Good Plan - Discharge Summary New Discharge Prescriptions: New Ibuprofen [Motrin] 600 mg PO Q6HR PRN #30 tab PRN Reason: Mild Pain Or Fever >= 100.5 Sennosides-Docusate Sodium [Senokot-S] 2 each PO BID@0800,2000 tab traMADol-ACETAMINOP 37.5-325MG [Ultracet] 1 each PO Q4HR PRN #20 tab PRN Reason: Pain Discontinued Iwd-Yyak-Zgzft Acid [-U Capsule (formulary)] 1 cap PO DAILY #30 cap Discharge Medication List Ibuprofen [Motrin] 600 mg PO Q6HR PRN #30 tab 09/14/17 [Rx] Sennosides-Docusate Sodium [Senokot-S] 2 each PO BID@0800,2000 tab 09/14/17 [Rx ] traMADol-ACETAMINOP 37.5-325MG [Ultracet] 1 each PO Q4HR PRN #20 tab 09/14/17 [ Rx] Follow up Appointment(s)/Referral(s): Kalpana Mcmahon DO [Doctor of Osteopathic Medicine] - 10 Days Activity/Diet/Wound Care/Special Instructions: Follow-up in 2 weeks after surgery in the office. Call the office with any concerning signs or symptoms including fever greater than 101, severe abdominal pain, heavy vaginal bleeding, signs of wound infection, increased swelling or redness of the lower extremities, signs of depression. No driving for 2 weeks after surgery. No heavy lifting or vigorous activity until reevaluated in the office. No intercourse for 6 weeks after delivery. Discharge Disposition: HOME SELF-CARE
[2017-09-14] MEDS: IBUPROFEN 600 MG TAB PO PRN (12:44)
== END 2017-09-14 13:53 | disposition home or self-care (01) | DRG 540 ==
LOC: FBPOP 08:21 → 4FBP 08:39
PROVIDERS: ADMIT Obstetrics & Gynecology Obstetrics; ATTEND Obstetrics & Gynecology Obstetrics
PROC: 10D00Z1 Extraction of Products of Conception, Low, Open Approach (ICD-10-PCS; principal; 2017-09-09 08:49)
DX: O76 Abnormality in fetal heart rate and rhythm complicating labor and delivery (principal); K56.7 Ileus, unspecified; Z37.0 Single live birth; O77.0 Labor and delivery complicated by meconium in amniotic fluid; Z88.0 Allergy status to penicillin; Z88.5 Allergy status to narcotic agent; Z87.891 Personal history of nicotine dependence; Z3A.38 38 weeks gestation of pregnancy
CPT/HCPCS: 74000; 82803; 85025; 86850; 86900; 86901; 88307

== ENCOUNTER 2019-10-16 22:30 | Outpatient (CLI) | payer BC, OTHER ==
[2019-10-17 00:13] VITALS: BP 131/66; PULSE 78; RESP 16; TEMP 97.2
--- NOTE | 2019-10-17 10:11 | P.MSEPDOC ---
Presenting Problems - Arrival Data Date of Arrival on Unit: 10/17/19 Time of Arrival on Unit: 22:30 Mode of Transport: Ambulatory - Complaint OB-Reason for Admission/Chief Complaint: Possible Onset of Labor Medical History - Information : 2 Para: 1 Term: 1 : 0 Abortions: Spontaneous or Elective: 0 Number of Living Children: 1 - Gestational Age Gestational Age by KASANDRA (wks/days): 38 Weeks and 0 Days Review of Systems - Review of Systems Constitutional: No problems Breast: No problems ENT: No problems Cardiovascular: No problems Respiratory: No problems Gastrointestinal: No problems Genitourinary: No problems Musculoskeletal: No problems Neurological: No problems Skin: No problems Vital Signs - Temperature Temperature: 97.2 F Temperature Source: Temporal Artery Scan - Pulse Pulse Oximetery Pulse Rate: 78 Pulse Assessment Method: Pulse Oximetry - Respirations Respiratory Rate: 16 Oxygen Delivery Method: Room Air - Blood Pressure Sitting Blood Pressure: 131/66 Blood Pressure Mean: 87 Blood Pressure Source: Automatic Cuff Medical Screen Scoring (Pre) - Cervical Exam Dilation: 0 cm = 0 Membranes: Intact - Uterine Contractions Frequency: > or = 36 weeks =2 Duration: > 40 seconds = 2 Intensity: N/A - Maternal Vital Signs Maternal Temperature: N/A Maternal Blood Pressure: N/A Signs of Preeclampsia: N/A Maternal Respirations: N/A - Maternal Trauma Maternal Trauma: N/A - Assessment - Baby A Baseline FHR: 135 Heart Rate - NICHD Category: Category I (Normal) = 0 NST: Reactive Position: N/A Station: N/A - Total Score - Baby A Total Score - Baby A: 4 - Total Score - Baby B Total Score - Baby B: 4 - Total Score - Baby C Total Score - Baby C: 4 - Level of Risk - Baby A Level of Risk - Baby A: Low (0-5) - Level of Risk - Baby B Level of Risk - Baby B: Low (0-5) - Level of Risk - Baby C Level of Risk - Baby C: Low (0-5) Physician Notification (Pre) - Physician Notified Physician Notified Date: 10/16/19 Physician Notified Time: 23:51 New Order Received: Yes - Notification Comment Comment: Orders given to discharge patient home with instructions. Disposition - Disposition OB Disposition: Discharge to home, Written follow up instructions reviewed Discharge Date: 10/17/19 Discharge Time: 00:04 I agree with the RN Medical Screening Exam: Yes Risk & Benefit of care provided described in d/c instruction: Yes Diagnosis: FALSE LABOR AT OR AFTER 37 COMPLETED WEEKS OF GESTATION
== END 2019-10-17 00:04 | disposition home or self-care (01) ==
LOC: FBPOP 22:30
PROVIDERS: ATTEND Obstetrics & Gynecology
DX: O47.1 False labor at or after 37 completed weeks of gestation (principal); Z3A.38 38 weeks gestation of pregnancy
CPT/HCPCS: 59025; G0463; 99213

== ENCOUNTER 2019-10-17 11:05 | Inpatient (IN) | payer OTHER ==
[2019-10-17] MEDS ORDERED: CARBOPROST TROMETHAMINE 250 MCG/ML 1 ML AMP IM PRN (11:51)
[2019-10-17] MEDS ORDERED: LIDOCAINE 0.5% (PF) 5 MG/ML (50 ML SDV) SQ PRN (11:51)
[2019-10-17] MEDS ORDERED: TERBUTALINE 1 MG/ML VIAL SQ PRN (11:51)
[2019-10-17] MEDS ORDERED: METHYLERGONOVINE 0.2 MG/ML 1 ML AMP IM PRN (11:51)
[2019-10-17] MEDS ORDERED: OXYTOCIN 10 UNIT/ML 1 ML VIAL IM PRN (11:51)
[2019-10-17] MEDS ORDERED: LACTATED RINGERS 1,000 ML IV SCH (12:00)
[2019-10-17 12:01] LABS: Basophils % (A) 0 %; Eosinophils # (A) 0.1 k/uL (0-0.7); Eosinophils % (A) 1 %; HCT 32.3 % (34.0-46.0); HGB 10.3 gm/dL (11.4-16.0); Hypochromasia Moderate; Lymphocytes # (A) 1.2 k/uL (1.0-4.8); Lymphocytes % (A) 8 %; MCH 27.8 pg (25.0-35.0); MCHC 31.9 g/dL (31.0-37.0); Mean Platelet Volume 8.2; Monocytes # (A) 0.6 k/uL (0-1.0); Monocytes % (A) 4 %; Neutrophils # (A) 13.4 k/uL (1.3-7.7); Neutrophils % (A) 87 %; Platelet Count 251 k/uL (150-450); RBC 3.71 m/uL (3.80-5.40); RDW 14.2 % (11.5-15.5); WBC 15.5 k/uL (3.8-10.6)
[2019-10-17] MEDS: LACTATED RINGERS 1,000 ML IV SCH ×2 (12:20→19:21)
[2019-10-17] MEDS ORDERED: CITRIC ACID-SODIUM CITRATE 15 ML CUP PO ONE ×2 (14:03→14:05)
[2019-10-17] MEDS ORDERED: fentaNYL (PF) 50 MCG/ML 2 ML AMP ONE (14:14)
[2019-10-17] MEDS ORDERED: OXYTOCIN 10 UNIT/ML 1 ML VIAL ONE (14:14)
[2019-10-17] MEDS ORDERED: NALBUPHINE 10 MG/ML (1 ML AMP) ONE (14:14)
[2019-10-17] MEDS ORDERED: CLINDAMYCIN 150 MG/ML 4 ML VIAL ONE (14:14)
[2019-10-17] MEDS ORDERED: LACTATED RINGERS 1,000 ML BAG IV ONE (14:14)
[2019-10-17] MEDS ORDERED: ONDANSETRON 4 MG/2 ML VIAL ONE (14:14)
[2019-10-17] MEDS ORDERED: KETOROLAC 30 MG/ML 1 ML VIAL ONE (14:14)
[2019-10-17] MEDS ORDERED: MORPHINE SULFATE (PF) 0.3 MG/0.3 ML SYR ONE (14:14)
[2019-10-17] MEDS ORDERED: ACETAMINOPHEN TAB 325 MG TAB PO PRN (14:50)
[2019-10-17] MEDS ORDERED: NALOXONE 0.4 MG/ML 1 ML VIAL IV PRN (14:50)
[2019-10-17] MEDS ORDERED: ZOLPIDEM 5 MG TAB PO PRN (14:50)
[2019-10-17] MEDS ORDERED: diphenhydrAMINE 25 MG CAP PO PRN (14:50)
[2019-10-17] MEDS ORDERED: METOCLOPRAMIDE 5 MG/ML 2 ML VIAL IVP PRN (14:50)
[2019-10-17] MEDS ORDERED: SIMETHICONE 80 MG CHEWABLE PO PRN (14:50)
[2019-10-17] MEDS ORDERED: ONDANSETRON 4 MG/2 ML VIAL IVP PRN (14:50)
[2019-10-17] MEDS ORDERED: LANOLIN CREAM 5 GM TUBE TOPICAL PRN (14:50)
[2019-10-17] MEDS ORDERED: HYDROcodone/APAP 7.5-325MG 1 EACH TAB PO PRN (14:50)
[2019-10-17] MEDS ORDERED: diphenhydrAMINE 50 MG CAP PO PRN (14:50)
[2019-10-17] MEDS ORDERED: diphenhydrAMINE 50 MG/ML 1 ML VIAL IVP PRN ×2 (14:50)
--- NOTE | 2019-10-17 14:54 | P.HPOB ---
History of Present Illness H&P Date: 10/17/19 Chief Complaint: labor 23-year-old presented at 39 weeks in active labor. Her cervix was 8 cm dilated, 90% effaced, and -2 station. She is rody every 2-4 minutes. heart tones 130 with moderate variability and reactive. She did have a previous section was planning a repeat but as she came in 8 cm we will let her try . Vaginal after with all risks, benefits and alternatives were discussed with the patient and her . The patient decided to do a trial of labor. Review of Systems All systems: negative Constitutional: Denies chills, Denies fever Eyes: denies blurred vision, denies pain Ears, nose, mouth and throat: Denies headache, Denies sore throat Cardiovascular: Denies chest pain, Denies shortness of breath Respiratory: Denies cough Gastrointestinal: Denies abdominal pain, Denies diarrhea, Denies nausea, Denies vomiting Genitourinary: Denies dysuria, Denies hematuria Musculoskeletal: Denies myalgias Integumentary: Denies pruritus, Denies rash Neurological: Denies numbness, Denies weakness Psychiatric: Denies anxiety, Denies depression Endocrine: Denies fatigue, Denies weight change Past Medical History Additional Past Medical History / Comment(s): endometreosis. obstetrics history: First was a primary for heart tones. This is her second . She's had care with Dr. Pagan. Blood type is O+, abs negative, rubella nonimmune, hep is B-, HIV nonreactive, RPR negative. History of Any Multi-Drug Resistant Organisms: None Reported Past Surgical History: Section, Hernia Repair Past Anesthesia/Blood Transfusion Reactions: No Reported Reaction Past Psychological History: Anxiety, Bipolar Smoking Status: Never smoker Past Alcohol Use History: None Reported Past Drug Use History: Marijuana Additional Drug Use History / Comment(s): pt states discontinued use but family she lives with still smokes - Past Family History Mother Family Medical History: Blood Disorder Additional Family Medical History / Comment(s): ITP TTP Medications and Allergies Home Medications Medication Instructions Recorded Confirmed Type Pnv No.95/Ferrous Fum/Folic AC 1 each PO DAILY 10/16/19 10/17/19 History [ Multivitamin Tablet] Sertraline [Zoloft] 1 tab PO DAILY 10/16/19 10/17/19 History Allergies Allergy/AdvReac Type Severity Reaction Status Date / Time codeine Allergy Anaphylaxis Verified 10/17/19 11:39 Penicillins Allergy Rash/Hives Verified 10/17/19 11:39 Exam Osteopathic Statement: *. No significant issues noted on an osteopathic struct ural exam other than those noted in the History and Physical/Consult. Vital Signs Temp Pulse Resp BP Pulse Ox 10/17/19 11:30 97.8 F 97 18 135/77 100 Intake and Output 10/16/19 10/17/19 10/17/19 22:59 06:59 14:59 Other: Weight 60.781 kg Heart: Regular rate and rhythm Lungs: Clear to auscultation bilaterally Abdomen: Soft, nontender Extremities: Negative Homans sign Results Result Diagrams: 10/17/19 11:49 Abnormal Lab Results - Last 24 Hours (Table) 10/17/19 Range/Units 11:49 WBC 15.5 H (3.8-10.6) k/uL RBC 3.71 L (3.80-5.40) m/uL Hgb 10.3 L (11.4-16.0) gm/dL Hct 32.3 L (34.0-46.0) % Neutrophils # 13.4 H (1.3-7.7) k/uL Assessment and Plan (1) Normal labor Current Visit: Yes Status: Acute Code(s): O80 - ENCOUNTER FOR FULL-TERM UNCOMPLICATED DELIVERY; Z37.9 - OUTCOME OF DELIVERY, UNSPECIFIED SNOMED Code(s): 01231713 (2) Previous section Current Visit: Yes Status: Acute Code(s): Z98.891 - HISTORY OF UTERINE SCAR FROM PREVIOUS SURGERY SNOMED Code(s): 386369188 Plan: 1. Admit to family place 2. Expectant management 3. Anticipate normal vaginal delivery though the patient is a and we did discuss the risks and benefits of a repeat versus vaginal after .
--- NOTE | 2019-10-17 14:56 | P.OP ---
Date of Procedure: 10/17/19 Preoperative Diagnosis: 1. at 39 weeks 2. Previous section 3. Arrest of descent Postoperative Diagnosis: 1. at 39 weeks 2. Previous section 3. Arrest of descent Procedure(s) Performed: repeat low transverse Anesthesia: spinal Surgeon: Miriam Sue Helpdesk Specialist #1: Jovana Bateman Estimated Blood Loss (ml): 400 IV fluids (ml): 600 Urine output (ml): 500 Pathology: none sent Condition: stable Disposition: floor Indications for Procedure: 23-year-old presented at 39 weeks in active labor. She was 8 cm dilated when she presented. She did not make any cervical change despite adequate contractions for at least 3 hours. Considering she is a vaginal after the risks were reevaluated and discussed with the patient and the who both decide along with medical personnel to perform a repeat low transverse . Operative Findings: viable female, Apgars 8, 9, weight 8 pounds. Normal uterus tubes and ovaries. Description of Procedure: Patient was taken to the operating room where spinal anesthesia was found be adequate. She was prepped and draped in normal sterile fashion in dorsal supine position with a leftward tilt. Pfannenstiel skin incision was made the scalpel and carried through to the underlying layer of fascia with the scalpel. Fascia was incised in midline and carried bilaterally with the Dave scissors. The superior aspect of the fascial incision was grasped with Clyo clamps elevated and the underlying rectus muscles dissected off with the Dave's. Attention was then turned to inferior aspect of same incision which in a similar fashion was grasped tented up and the underlying rectus muscles dissected off with the Dave's. The rectus muscles were the midline and the peritoneum was identified tented up and entered sharply with the scalpel. The incision was extended superiorly and inferiorly with good visualization of the bladder. The bladder blade was inserted and the vesicouterine peritoneum was incised the Metzenbaums then carried bilaterally and bladder flap created digitally. A low transverse incision was then made on the uterus with the scalpel. This was carried bilaterally and digital manner. 's head delivered atraumatically, nose and mouth bulb suctioned, cord clamped and cut, handed off to waiting nurses. Apgars 8,9, weight 8 lbs. Placenta delivered manually, intact with three-vessel cord. The uterus is exteriorized and cleared of all clots and debris. The uterine incision was closed with 0 Vicryl in a running locked fashion. Second layer of the same sutures used in imbricating fashion to obtain excellent hemostasis. Bladder flap was then reapproximated using 2-0 Vicryl in a running fashion. Both ovaries and tubes appeared normal. The uterus was placed back into the abdomen. The peritoneum was reapproximated using 2-0 Vicryl in a running fashion. The muscles were reapproximated using 2-0 Vicryl in interrupted fashion. The fascia was reapproximated using 0 Vicryl in a running fashion. The subcutaneous tissues closed with 3-0 Vicryl running fashion. The skin was closed joseph. Patient tolerated the procedure well, sponge and instrument counts were correct times 2 and she was taken to the recovery room in stable condition.
[2019-10-17] MEDS ORDERED: OXYTOCIN 20 UNITS/1000 ML NS 1,000 ML IV SCH (15:00)
[2019-10-17] MEDS: SENNOSIDES-DOCUSATE SODIUM 1 EACH TAB PO SCH (19:57)
[2019-10-17 21:31] VITALS: RESP 16
[2019-10-17] MEDS ORDERED: MEASLES-MUMPS-RUBELLA VACC/PF 12,500 UNIT/0.5 ML VIAL SQ ONE (22:20)
[2019-10-17] MEDS: KETOROLAC 30 MG/ML 1 ML VIAL IVP PRN (22:31)
[2019-10-18] MEDS: KETOROLAC 30 MG/ML 1 ML VIAL IVP PRN (05:47)
[2019-10-18 06:11] LABS: Basophils % (A) 0 %; Eosinophils # (A) 0.1 k/uL (0-0.7); Eosinophils % (A) 1 %; HCT 29.3 % (34.0-46.0); HGB 9.2 gm/dL (11.4-16.0); Hypochromasia Marked; Lymphocytes # (A) 1.8 k/uL (1.0-4.8); Lymphocytes % (A) 11 %; MCH 27.5 pg (25.0-35.0); MCHC 31.3 g/dL (31.0-37.0); MCV 87.8 fL (80.0-100.0); Mean Platelet Volume 7.9; Monocytes # (A) 0.7 k/uL (0-1.0); Monocytes % (A) 4 %; Neutrophils # (A) 12.7 k/uL (1.3-7.7); Neutrophils % (A) 83 %; Platelet Count 237 k/uL (150-450); RBC 3.34 m/uL (3.80-5.40); RDW 14.2 % (11.5-15.5); WBC 15.4 k/uL (3.8-10.6)
--- NOTE | 2019-10-18 07:10 | P.PN ---
Progress Note - Text Progress Note Date: 10/18/19 POD 1 SAB with morphine. doing well. No parasthesia, no weakness, no headaches. able to urinate. no bowel movement. Mental status at baseline. doing well, call anesthesia with questions.
[2019-10-18] MEDS: SENNOSIDES-DOCUSATE SODIUM 1 EACH TAB PO SCH ×2 (08:00→21:45)
--- NOTE | 2019-10-18 09:06 | P.PNOBGPC ---
Subjective - Subjective Principal diagnosis: postop day 1 Interval history: this addendum is doing very well postop day 1. She is ambulating, voiding and tolerating her diet. She voices no complaints this time. Patient reports: Reports appetite normal, Reports voiding normally, Reports pain well controlled, Reports ambulating normally : doing well Objective - Vital Signs Latest vital signs: Vital Signs Temp Pulse Resp BP Pulse Ox 10/18/19 08:00 98.2 F 61 16 112/57 10/18/19 04:00 98.4 F 54 L 16 86/37 97 10/18/19 00:00 97.9 F 64 16 117/68 98 10/17/19 20:00 98.2 F 63 16 118/72 98 10/17/19 17:00 96.4 F L 53 L 15 118/68 10/17/19 16:30 62 15 117/58 10/17/19 16:00 51 L 16 114/57 100 10/17/19 15:41 62 16 112/56 99 10/17/19 15:29 61 15 95/64 99 10/17/19 15:15 69 15 101/57 100 10/17/19 15:00 96.5 F L 79 16 103/51 99 10/17/19 11:30 97.8 F 97 18 135/77 100 Intake and Output 10/17/19 10/18/19 10/18/19 22:59 06:59 14:59 Intake Total 600 Output Total 1000 225 Balance -1000 375 Intake: Other 600 Output: Urine 1000 225 Uretheral (Muir) 600 - Exam Lungs: bilateral: normal Chest: Normal S1, Normal S2 Extremities: Present: normal Abdomen: Present: normal appearance, soft. Absent: distention, tenderness Incision: Present: normal, dry, intact Uterus: Present: normal, firm - Labs Labs: Abnormal Lab Results - Last 24 Hours (Table) 10/17/19 10/18/19 Range/Units 11:49 05:31 WBC 15.5 H 15.4 H (3.8-10.6) k/uL RBC 3.71 L 3.34 L (3.80-5.40) m/uL Hgb 10.3 L 9.2 L (11.4-16.0) gm/dL Hct 32.3 L 29.3 L (34.0-46.0) % Neutrophils # 13.4 H 12.7 H (1.3-7.7) k/uL
[2019-10-18] MEDS: IBUPROFEN 600 MG TAB PO PRN ×2 (12:44→22:34)
[2019-10-19] MEDS: IBUPROFEN 600 MG TAB PO PRN (08:09)
[2019-10-19 08:30] VITALS: BP 110/55; PULSE 57; TEMP 98.2
--- NOTE | 2019-10-19 10:35 | P.DS ---
Providers Date of admission: 10/17/19 11:27 Expected date of discharge: 10/19/19 Attending physician: Francisco Mcmahan Primary care physician: Stated None Hospital Course: Twila is doing very well post op day 2. She is involuting, voiding and tolerating her diet. She voices no complaints and requests discharged to home today. Prescription for Motrin and breast pump are provided. Discharge instructions were thoroughly reviewed. On physical exam vital signs are stable and afebrile. Heart regular, lungs clear, extremities without pain. Abdomen soft nontender. Incision is clean dry and intact. Assessment post op day 2. Plan discharged home follow up with me in 1 week. We'll plan to remove joseph and place Steri-Strips today. Patient Condition at Discharge: Good Plan - Discharge Summary New Discharge Prescriptions: New Ibuprofen [Motrin] 600 mg PO Q6HR PRN #30 tab PRN Reason: Pain No Action Pnv No.95/Ferrous Fum/Folic AC [ Multivitamin Tablet] 1 each PO DAILY Sertraline [Zoloft] 1 tab PO DAILY Discharge Medication List Pnv No.95/Ferrous Fum/Folic AC [ Multivitamin Tablet] 1 each PO DAILY 10/16/19 [History] Sertraline [Zoloft] 1 tab PO DAILY 10/16/19 [History] Ibuprofen [Motrin] 600 mg PO Q6HR PRN #30 tab 10/19/19 [Rx] Follow up Appointment(s)/Referral(s): Francisco Mcmahan DO [Doctor of Osteopathic Medicine] - 1 Week Activity/Diet/Wound Care/Special Instructions: No heavy lifting, limit stairs and driving, and pelvic rest. If any high temperatures, heavy bleeding, or severe pain call my office Discharge Disposition: HOME SELF-CARE
[2019-10-19] MEDS: SENNOSIDES-DOCUSATE SODIUM 1 EACH TAB PO SCH (11:57)
== END 2019-10-19 12:29 | disposition home or self-care (01) | DRG 788 ==
LOC: FBPOP 11:05 → 4FBP 11:27
PROVIDERS: ADMIT Obstetrics & Gynecology; ATTEND Obstetrics & Gynecology
PROC: 10D00Z1 Extraction of Products of Conception, Low, Open Approach (ICD-10-PCS; principal; 2019-10-17 13:57)
DX: O34.211 Maternal care for low transverse scar from previous cesarean delivery (principal); O62.1 Secondary uterine inertia; O99.344 Other mental disorders complicating childbirth; F41.9 Anxiety disorder, unspecified; F31.9 Bipolar disorder, unspecified; Z37.0 Single live birth; Z3A.39 39 weeks gestation of pregnancy; Z88.5 Allergy status to narcotic agent; Z88.0 Allergy status to penicillin
CPT/HCPCS: 85025; 86850; 86900; 86901; 90707

== ENCOUNTER → 2019-12-07 | Outpatient (CLI) | payer OTHER | END | disposition home or self-care (01) | LOC: LABWHC1 11:32 | PROVIDERS: ATTEND Obstetrics & Gynecology | DX: N91.2 Amenorrhea, unspecified (principal) | CPT/HCPCS: 36415; 84702 ==

== ENCOUNTER → 2020-08-16 | Outpatient (CLI) | payer OTHER ==
--- NOTE | 2020-08-16 14:40 | US ---
EXAMINATION TYPE: US pelvic complete DATE OF EXAM: 08/16/2020 COMPARISON: NONE CLINICAL HISTORY: R10.2 Pelvic Pain. Spotting. Patient is on depo shot. TECHNIQUE: Transabdominal (TA). Transabdominal sonographic images of the pelvis were acquired. Date of LMP: 05/03/2020, EXAM MEASUREMENTS: Uterus: 7.4 x 5.2 x 3.8 cm Endometrial Stripe: 0.2 cm Right Ovary: 3.0 x 1.8 x 1.9 cm Left Ovary: 3.4 x 1.7 x 2.2 cm 1. Uterus: Anteverted and anteflexed. There is heterogenous myometrial echotexture texture and are as of obscured endometrial myometrial border. 2. Endometrium: Normal. 3. Right Ovary: Normal. Follicular changes. 4. Left Ovary: Normal. Follicular changes. 5. Bilateral Adnexa: Normal. 6. Posterior cul-de-sac: No free fluid. IMPRESSION: 1. Heterogenous myometrium and areas of obscured endometrial and myometrial border. Findings may repr esent adenomyosis. MRI of the pelvis may be of benefit for further characterization. 2. Normal ovaries bilaterally. 3. No pelvic free fluid.
== END | disposition home or self-care (01) ==
LOC: RADUSWWP 12:10
PROVIDERS: ATTEND Obstetrics & Gynecology
DX: R94.8 Abnormal results of function studies of other organs and systems (principal)
CPT/HCPCS: 76856

== ENCOUNTER → 2022-08-15 | Outpatient (CLI) | payer SELFPAY ==
--- NOTE | 2022-08-15 15:00 | CT ---
EXAMINATION TYPE: CT ankle RT wo con CT DLP: 274 mGycm, Automated exposure control for dose reduction was used. DATE OF EXAM: 08/15/2022 2:04 PM COMPARISON: None. CLINICAL INDICATION:Female, 26 years old with history of Surgical planning; S82.51XA; [facility], Surgical p bharat, pt fractured ankle this morning. Fall TECHNIQUE: Axial images were obtained of the right ankle without the use of IV contrast. Additional coronal and sagittal reformatted images and soft tissue and bone window were obtained for review. 3-D reconstruction was created on a separate workstation. FINDINGS: Acute minimally displaced fracture of the medial malleolus with extension into the tibial p devonte/articular surface. No subluxation or dislocation. Remaining osseous structures are intact. The re is approximately 3 mm of anterior lateral displacement of the medial malleolus fragment. No signi ficant soft tissue swelling is identified. Small ankle joint effusion. Small sclerotic focus within t he cuboid favored to represent a benign bone island. No focal muscular atrophy or edema is identified . No radiopaque foreign body identified. IMPRESSION: Acute medial malleolar fracture with intra-articular extension as described above.
== END | disposition home or self-care (01) ==
LOC: RADCTMAIN 13:24
PROVIDERS: ATTEND Orthopaedic Surgery
DX: S82.51XA Displaced fracture of medial malleolus of right tibia, initial encounter for closed fracture (principal)